=== PATIENT | female | born 1930 | race African-American/Black ===

== ENCOUNTER 2017-06-09 16:46 | Emergency (ER) | payer MEDICARE, MEDICAID ==
[2017-06-09 17:22] LABS: #Basophils 0.1 thou/uL (0.0-0.2); #Eosinphils 0.1 thou/uL (0.0-0.7); #Lymphocytes 2.5 thou/uL (1.20-3.40); #Monocytes 0.9 thou/uL (0.11-0.59); #Neutrophils 5.8 thou/uL (1.40-6.50); %Basophils 1.2 % (0.0-1.0); %Eosinophils 1.1 % (0.0-10.0); %Monocytes 9.3 % (0.0-10.0); %Neutrophils 61.5 % (42.0-75.0); Hemoglobin 10.7 g/dL (12.0-16.0); Mean Corpuscular HGB CONC 30.6 g/dL (32.0-36.0); Mean Corpuscular Hemoglobin 26.6 pg (27.0-31.0); Mean Corpuscular Volume 87.2 fl (81.0-99.0); Mean Platelet Volume 6.1 fL (7.4-10.4); Platelet Count 206 thou/uL (130-400); RBC Distribution Width 14.1 % (11.5-14.5); Red Blood Cell (RBC) Count 4.03 mill/uL (4.20-5.40); White Blood Cell (WBC) Count 9.4 thou/uL (4.8-10.8)
[2017-06-09 17:24] LABS: PTT 29.7 SEC (22.9-36.1); Prothrombin Time 13.3 SEC (12.0-14.7)
[2017-06-09 17:33] LABS: ALT (SGPT) 22 U/L (8-55); AST (SGOT) 27 U/L (5-34); Albumin 4.2 g/dL (3.4-4.8); Alkaline Phosphatase 93 U/L (40-150); Anion Gap 17 mmol/L (10-20); BUN (Urea Nitrogen) 38 mg/dL (9.8-20.1); Bilirubin, Total 0.3 mg/dL (0.2-1.2); Calc. Creatinine Clearance 0 mL/min (70-130); Calcium 9.9 mg/dL (7.8-10.44); Carbon Dioxide 19 mmol/L (23-31); Chloride 107 mmol/L (98-107); Estimated GFR-MDRD 43; Globulin 5.1 g/dL (2.4-3.5); Glucose 96 mg/dL (83-110); Potassium 4.2 mmol/L (3.5-5.1); Protein, Total 9.3 g/dL (6.0-8.3); Sodium 139 mmol/L (136-145)
[2017-06-09 18:47] LABS: Troponin I 0.021 ng/mL (< 0.028)
[2017-06-09 19:13] LABS: Bilirubin Negative (Negative); Blood, Urine Negative (Negative); Clarity Clear (Clear); Glucose, Urine (Dipstick) Negative (Negative); Leukocyte Negative (Negative); Nitrite Negative (Negative); Protein, Urine (Dipstick) Trace mg/dL (Neg-Trace); Urobilinogen 0.2 mg/dL (0.2-1.0)
[2017-06-09 19:15] LABS: Specific Gravity, Urine 1.008 (1.002-1.036)
[2017-06-09] MEDS ORDERED: Furosemide 40 MG/4 ML VIAL ONE (19:42)
[2017-06-09] MEDS ORDERED: Nitroglycerin 2% Ointment 1 INCH/1 GM Packet ONE (19:42)
--- NOTE | 2017-06-09 20:01 | ULT ---
RIGHT LOWER EXTREMITY VENOUS DOPPLER ULTRASOUND: Date: 06-09-17 Comparison: None. History: 87-year-old female with right lower extremity pain and swelling, assess for DVT. Technique: Multiplanar grayscale sonographic imaging of the venous structures of the right lower ext remity obtained with color flow/spectral analysis. FINDINGS: The right common femoral vein, greater saphenous vein, profunda femoral vein, femoral vein, poplitea l vein and posterior tibial vein demonstrate patency. There is normal blood flow, augmentation, and compression within the deep venous system on the right with no evidence of right lower extremity DVT . IMPRESSION: No evidence for deep venous thrombosis of the right lower extremity. POS: [facility]
--- NOTE | 2017-06-09 20:42 | RAD ---
PORTABLE SUPINE FRONTAL CHEST: Date: 06-09-17 Comparison: 01-03-16 History: Leg swelling, CHF exacerbation. FINDINGS: Supine imaging is provided, limiting assessment for pneumothorax and pleural fluid. There is mild pu lmonary vascular prominence. There is mild new bilateral perihilar and bibasilar interstitial promin ence. There are degenerative changes involving bilateral shoulders. IMPRESSION: New pulmonary vascular congestion and interstitial prominence suggests interstitial edema. Follow up imaging following treatment advised to document resolution. POS: [facility]
== END 2017-06-09 20:11 | disposition short-term general hospital (02) ==
LOC: NAV ERS 16:46
DX: I11.0 Hypertensive heart disease with heart failure (principal); I50.9 Heart failure, unspecified; R94.31 Abnormal electrocardiogram [ECG] [EKG]; E78.5 Hyperlipidemia, unspecified; Z79.899 Other long term (current) drug therapy
CPT/HCPCS: 36415; 51702; 71010; 80053; 81003; 83880; 84484; 85025; 85610; 85730; 93005; 96374; J1940

== ENCOUNTER 2017-07-29 13:15 | Outpatient (CLI) | payer MEDICARE, MEDICAID ==
[2017-07-29 16:24] LABS: Hemoglobin 11.5 g/dL (12.0-16.0)
[2017-07-29 16:38] LABS: Anion Gap 19 mmol/L (10-20); BUN (Urea Nitrogen) 46 mg/dL (9.8-20.1); Calc. Creatinine Clearance 0 mL/min (70-130); Calcium 10.1 mg/dL (7.8-10.44); Carbon Dioxide 19 mmol/L (23-31); Chloride 107 mmol/L (98-107); Estimated GFR-MDRD 31; Glucose 96 mg/dL (83-110); Potassium 4.7 mmol/L (3.5-5.1); Sodium 140 mmol/L (136-145)
[2017-07-29 17:46] LABS: Follow-up Chemistry Comp? YES; Follow-up Result - Chemistry REPORT FAXED
== END 2017-07-29 13:16 | disposition home or self-care (01) ==
LOC: NAVSJIPCSP 13:15
PROVIDERS: ATTEND Internal Medicine
DX: I12.9 Hypertensive chronic kidney disease with stage 1 through stage 4 chronic kidney disease, or unspecified chronic kidney disease (principal); N18.4 Chronic kidney disease, stage 4 (severe)
CPT/HCPCS: 36415; 80048; 85014; 85018

== ENCOUNTER 2018-03-24 11:37 | Outpatient (CLI) | payer MEDICARE, MEDICAID ==
[2018-03-24 12:04] LABS: Hemoglobin 11.6 g/dL (12.0-16.0)
[2018-03-24 12:52] LABS: Anion Gap 17 mmol/L (10-20); BUN (Urea Nitrogen) 45 mg/dL (9.8-20.1); Calc. Creatinine Clearance 0 mL/min (70-130); Calcium 9.9 mg/dL (7.8-10.44); Carbon Dioxide 19 mmol/L (23-31); Chloride 109 mmol/L (98-107); Estimated GFR-MDRD 42; Glucose 87 mg/dL (83-110); Potassium 4.5 mmol/L (3.5-5.1); Sodium 140 mmol/L (136-145)
== END 2018-03-24 11:38 | disposition home or self-care (01) ==
LOC: NAV LAB 11:37
PROVIDERS: ATTEND Internal Medicine Nephrology
DX: N18.4 Chronic kidney disease, stage 4 (severe) (principal)
CPT/HCPCS: 36415; 80048; 85014; 85018